=== PATIENT | female | born 1965 | race Caucasian/White ===

== ENCOUNTER → 2017-11-18 | Outpatient (CLI) | payer OTHER ==
[~2017-11-18] MED LIST: BETA.05TC TOP; BETA.05TCA TOP; BUSP15 PO; CITA20 PO; CYCL10 PO; DOCU100 PO; Esgic Tablet1 EACH PO; FISH1000 PO; GABA100 PO; HYDCHL25 PO; IBUP400 PO; IBUP800 PO; METF500 PO; METO25ER PO; OMEPRAZOLE MAGN20 MG PO
[2017-11-18 15:26] LABS: Alanine Aminotransfer (ALT/SGP 41 U/L (12-78); Albumin, Blood 3.7 g/dL (3.4-5.0); Albumin/Globulin Ratio 0.9 (0.8-1.8); Alk Phos 73 U/L (50-136); Anion Gap 8 mmol/L (6-16); Aspartate Aminotrans (AST/SGOT 49 U/L (12-37); Bilirubin, Total 0.4 mg/dL (0.1-1.0); Blood Urea Nitrogen 7 mg/dL (8-24); Bun/Creatinine Ratio 12.9 (12.0-20.0); CO2, Blood 28 mmol/L (21-32); Calcium, Blood 9.2 mg/dL (8.5-10.1); Chloride, Blood 102 mmol/L (98-108); Creatinine, Blood 0.54 mg/dL (0.40-1.00); Globulin, Blood 4.2 g/dL (2.2-4.0); Glomerular Filtration Rate >60 (60-); Glucose, Blood 88 mg/dL (70-99); Potassium, Blood 3.9 mmol/L (3.5-5.5); Sodium, Blood 138 mmol/L (136-145); Total Protein, Blood 7.9 g/dL (6.4-8.2)
== END | disposition home or self-care (01) ==
LOC: LAB SHORT 14:55 → LAB 14:55
DX: E11.9 Type 2 diabetes mellitus without complications (principal)
CPT/HCPCS: 80053; 83036

== ENCOUNTER → 2018-08-14 | Outpatient (CLI) | payer OTHER ==
[~2018-08-14] MED LIST changes: +ALLO100 PO; +BUSP10 PO; +GABA300 PO; +HYDCHL12.5 PO; +METF500; +METF500C PO; +OMEPRAZOLE20 MG PO; +PRED5 PO
[2018-08-14 20:31] LABS: Alanine Aminotransfer (ALT/SGP 47 U/L (12-78); Albumin, Blood 3.8 g/dL (3.4-5.0); Albumin/Globulin Ratio 0.9 (0.8-1.8); Alk Phos 78 U/L (50-136); Anion Gap 10 mmol/L (6-16); Aspartate Aminotrans (AST/SGOT 40 U/L (12-37); Bilirubin, Total 0.5 mg/dL (0.1-1.0); Blood Urea Nitrogen 8 mg/dL (8-24); Bun/Creatinine Ratio 17.1 (12.0-20.0); CO2, Blood 27 mmol/L (21-32); Calcium, Blood 9.4 mg/dL (8.5-10.1); Chloride, Blood 101 mmol/L (98-108); Creatinine, Blood 0.47 mg/dL (0.40-1.00); Globulin, Blood 4.2 g/dL (2.2-4.0); Glomerular Filtration Rate >60 (60-); Glucose, Blood 155 mg/dL (70-99); Potassium, Blood 3.6 mmol/L (3.5-5.5); Sodium, Blood 138 mmol/L (136-145)
== END | disposition home or self-care (01) ==
LOC: LAB 15:42 → LAB SHORT 15:42
PROVIDERS: Podiatrist
DX: I47.1 Supraventricular tachycardia (principal); M10.9 Gout, unspecified
CPT/HCPCS: 80053; 84550

== ENCOUNTER 2018-10-10 09:46 | Day surgery (SDC) | payer OTHER ==
[~2018-10-10] VITALS: Ht 162.6 cm; Wt 120.0 kg
[2018-10-10] MEDS ORDERED: OMEP20ER PO (10:22)
[2018-10-10] MEDS ORDERED: FURO20 PO (10:24)
[2018-10-10] MEDS ORDERED: VITAMIN D-32000 UNIT PO (10:27)
[2018-10-10] MEDS ORDERED: ACET325 PO (10:27)
[2018-10-10] MEDS ORDERED: FISH OIL 1,001000 MG PO (10:27)
--- NOTE | 2018-10-10 15:28 | NUR ---
DISCHARGE PT REMAINED A&OX3 AND DENIED ANY PAIN DURING RECOVERY. R RADIAL SITE CDI-NO HEMATOMA NOTED-CLOTH DOT AND WHITE ARM BOARD IN PLACE. IV DC'D WITH CANULA IN TACT. DISCHARGE PAPERWORK GONE OVER WITH PT AND MOTHER. PT AND MOTHER VERBALY STATED THE UNDERSTANDING OF THE DISCHARGE EDUCATION AND DENIED ANY QUESTIONS AT THIS TIME. PT UP TO RESTROOM INDEPENDANLY AND DRESSES SELF. PT WHEELED OUT WITH BELONGINGS BY JOBY Hair
[2018-10-28] MEDS ORDERED: VITAMIN D5000 UNIT PO (14:04)
[2018-10-28] MEDS ORDERED: ACET325 PO (14:05)
== END 2018-10-12 23:47 | disposition home or self-care (01) ==
LOC: MHTC 09:46
PROC: B2111ZZ Fluoroscopy of Multiple Coronary Arteries using Low Osmolar Contrast (ICD-10-PCS; principal; 2018-10-10)
PROC: 4A023N7 Measurement of Cardiac Sampling and Pressure, Left Heart, Percutaneous Approach (ICD-10-PCS; principal; 2018-10-10)
DX: R07.89 Other chest pain (principal); I10 Essential (primary) hypertension; E78.5 Hyperlipidemia, unspecified; E11.9 Type 2 diabetes mellitus without complications; E66.01 Morbid (severe) obesity due to excess calories; M19.90 Unspecified osteoarthritis, unspecified site; R60.9 Edema, unspecified; K44.9 Diaphragmatic hernia without obstruction or gangrene; K27.9 Peptic ulcer, site unspecified, unspecified as acute or chronic, without hemorrhage or perforation; Z79.899 Other long term (current) drug therapy; Z79.84 Long term (current) use of oral hypoglycemic drugs; Z88.8 Allergy status to other drugs, medicaments and biological substances; Z88.1 Allergy status to other antibiotic agents; Z91.018 Allergy to other foods; Z68.41 Body mass index [BMI] 40.0-44.9, adult
CPT/HCPCS: 93458; 99152; 99153; C1769; C1894; J0690; J1644; J2250; J3010; J7030; Q9967

== ENCOUNTER 2018-10-29 08:12 | Day surgery (SDC) | payer OTHER ==
[~2018-10-29] VITALS: Ht 162.6 cm; Wt 118.1 kg
[~2018-10-29 08:12] MED LIST changes: +ACET325 PO; +FISH OIL 1,001000 MG PO; +FURO20 PO; +OMEP20ER PO; +VITAMIN D-32000 UNIT PO; +VITAMIN D5000 UNIT PO
--- NOTE | 2018-10-29 09:56 | NUR ---
Ambulatory in Day SurgeryPatient states colon prep results clear. History, Chart, Medications and Allergies reviewed before start of procedure..Lungs clear T/O to Auscultation. Patient confirms NPO status and agrees with scheduled surgery.CBG 135. Patient States Post-Procedure ride home has been arranged.
--- NOTE | 2018-10-29 10:37 | NUR ---
10/29/18 Rock Garvey 3-LEAD EKG REVIEWED WITH PHYSICIAN PRIOR TO START OF PROCEDURE.Patient to ENDO 1History, Chart, Medications and Allergies reviewed before start of procedure.MONITOR INTACT WITH CONTINUOUS PULSE OXIMETRY AND INTERMITTENT BP.O2 VIA N/C INTACT THROUGHOUT SEDATION/PROCEDURE.
--- NOTE | 2018-10-29 12:05 | NUR ---
Discharge instructions reviewed with patient. Patient verbalizes understanding. Copy given to patient to take home. Discharged via wheelchair to private car for ride home.
== END 2018-10-29 22:40 | disposition home or self-care (01) ==
LOC: ORSCMMR 08:12 → ORD 10:00 → ORSCMMR 22:40
PROVIDERS: Internal Medicine Gastroenterology
PROC: 0DBN8ZX Excision of Sigmoid Colon, Via Natural or Artificial Opening Endoscopic, Diagnostic (ICD-10-PCS; principal; 2018-10-29 10:00)
PROC: 0DBL8ZX Excision of Transverse Colon, Via Natural or Artificial Opening Endoscopic, Diagnostic (ICD-10-PCS; principal; 2018-10-29 10:00)
DX: K62.5 Hemorrhage of anus and rectum (principal); D12.3 Benign neoplasm of transverse colon; D12.5 Benign neoplasm of sigmoid colon; K64.4 Residual hemorrhoidal skin tags; K62.4 Stenosis of anus and rectum; E11.9 Type 2 diabetes mellitus without complications; Z79.899 Other long term (current) drug therapy
CPT/HCPCS: 82947; 88305; J2250; J3010; J7120

== ENCOUNTER 2018-12-19 13:05 | Emergency (ER) | payer OTHER ==
[~2018-12-19] VITALS: Ht 162.6 cm; Wt 114.3 kg
[2018-12-19 13:56] LABS: BASOPHILS ABSOLUTE AUTO 0.06 K/mm3 (0.00-0.23); BASOPHILS PERCENT AUTO 1 % (0-2); EOSINOPHILS ABSOLUTE AUTO 0.11 K/mm3 (0.00-0.68); EOSINOPHILS PERCENT AUTO 1 % (0-6); Hematocrit 40.9 % (33.0-51.0); Hemoglobin 13.1 g/dL (11.5-16.0); IMMATURE GRAN ABSOLUTE AUTO 0.04 K/mm3 (0.00-0.10); IMMATURE GRAN PERCENT AUTO 1 % (0-1); LYMPHOCYTES ABSOLUTE AUTO 1.98 K/mm3 (0.84-5.20); LYMPHOCYTES PERCENT AUTO 25 % (21-46); MONOCYTES ABSOLUTE AUTO 0.43 K/mm3 (0.16-1.47); MONOCYTES PERCENT AUTO 5 % (4-13); Mean Corpuscular HGB 29.9 pg (26.0-34.0); Mean Corpuscular Volume 93 fL (80-100); Mean Platelet Volume 10.8 fL (9.1-12.4); NEUTROPHILS ABSOLUTE AUTO 5.36 K/mm3 (1.96-9.15); NEUTROPHILS PERCENT AUTO 67 % (41-73); Platelet Count 233 K/mm3 (150-400); RDW Coefficient Variation 13.4 % (11.7-14.2); RDW Standard Deviation 45.6 fL (35.1-46.3); Red Blood Cell Count 4.38 M/mm3 (3.80-5.20); White Blood Cell Count 7.98 K/mm3 (4.00-11.30)
[2018-12-19 14:14] LABS: Alanine Aminotransfer (ALT/SGP 49 U/L (12-78); Albumin, Blood 3.6 g/dL (3.4-5.0); Albumin/Globulin Ratio 0.9 (0.8-1.8); Alk Phos 96 U/L (50-136); Anion Gap 7 mmol/L (6-16); Aspartate Aminotrans (AST/SGOT 76 U/L (12-37); Bilirubin, Total 0.3 mg/dL (0.1-1.0); Blood Urea Nitrogen 8 mg/dL (8-24); Bun/Creatinine Ratio 18.2 (12.0-20.0); CO2, Blood 23 mmol/L (21-32); Calcium, Blood 9.3 mg/dL (8.5-10.1); Chloride, Blood 108 mmol/L (98-108); Creatinine, Blood 0.44 mg/dL (0.40-1.00); Glomerular Filtration Rate >60 (60-); Glucose, Blood 235 mg/dL (70-99); Potassium, Blood 3.3 mmol/L (3.5-5.5); Sodium, Blood 138 mmol/L (136-145); Total Protein, Blood 7.6 g/dL (6.4-8.2); Troponin I <0.015 ng/mL (0.000-0.040)
== END 2018-12-19 15:00 | disposition home or self-care (01) ==
LOC: ER 13:05
PROVIDERS: Emergency Medicine
DX: R00.2 Palpitations (principal); Z88.1 Allergy status to other antibiotic agents; Z88.8 Allergy status to other drugs, medicaments and biological substances; Z88.6 Allergy status to analgesic agent; Z91.018 Allergy to other foods; Z91.048 Other nonmedicinal substance allergy status; Z79.899 Other long term (current) drug therapy; Z79.84 Long term (current) use of oral hypoglycemic drugs; F32.9 Major depressive disorder, single episode, unspecified; E11.9 Type 2 diabetes mellitus without complications
CPT/HCPCS: 71046; 80053; 84484; 85025; 93005; 93010; 99285-25

== ENCOUNTER 2020-06-21 07:57 | Day surgery (SDC) | payer OTHER ==
[~2020-06-21] VITALS: Ht 162.6 cm; Wt 116.0 kg
[~2020-06-21 07:57] MED LIST changes: +ATOR20 PO; +GLIP10 PO
--- NOTE | 2020-06-21 09:25 | NUR ---
History, Chart, Medications and Allergies reviewed before start of procedure. Patient confirms NPO status and agrees with scheduled PROCEDURE. Patient States Post-Procedure ride home has been arranged.
--- NOTE | 2020-06-21 10:37 | NUR ---
06/21/20 Deepika Mann History, Chart, Medications and Allergies reviewed before start of procedure. Patient confirms NPO status and agrees with scheduled surgery. PATIENT DETERMINED TO BE ASA APPROPRIATE FOR PROPOFOL SEDATION PRIOR TO START OF PROCEDURE BY . 3-LEAD EKG REVIEWED WITH PHYSICIAN PRIOR TO START OF PROCEDURE. MONITOR INTACT WITH CONTINUOUS PULSE OXIMETRY AND INTERMITTENT BP. SUPPLEMENTAL O2 TO BE TITRATED THROUGHOUT PROCEDURE TO MAINTAIN O2 SATURATION ABOVE 90%.
== END 2020-06-21 23:18 | disposition home or self-care (01) ==
LOC: ORSCMMR 07:57 → ORD 09:30 → ORSCMMR 09:30
PROVIDERS: Internal Medicine Gastroenterology
PROC: 0DB78ZX Excision of Stomach, Pylorus, Via Natural or Artificial Opening Endoscopic, Diagnostic (ICD-10-PCS; principal; 2020-06-21 09:30)
PROC: 0DB48ZX Excision of Esophagogastric Junction, Via Natural or Artificial Opening Endoscopic, Diagnostic (ICD-10-PCS; principal; 2020-06-21 09:30)
PROC: 0DB58ZX Excision of Esophagus, Via Natural or Artificial Opening Endoscopic, Diagnostic (ICD-10-PCS; principal; 2020-06-21 09:30)
PROC: 0D758ZZ Dilation of Esophagus, Via Natural or Artificial Opening Endoscopic (ICD-10-PCS; principal; 2020-06-21 09:30)
DX: R13.14 Dysphagia, pharyngoesophageal phase (principal); B37.81 Candidal esophagitis; K21.9 Gastro-esophageal reflux disease without esophagitis; E11.9 Type 2 diabetes mellitus without complications; E66.01 Morbid (severe) obesity due to excess calories; Z68.41 Body mass index [BMI] 40.0-44.9, adult; Z79.84 Long term (current) use of oral hypoglycemic drugs; Z79.899 Other long term (current) drug therapy
CPT/HCPCS: 82947; 88305; 88342; A9270; C1726; J2250; J3010; J7120

== ENCOUNTER → 2021-06-27 | Outpatient (CLI) | payer OTHER ==
[2021-06-28 17:12] LABS: HPV 16 Negative (Negative); HPV 18 Negative (Negative); HPV OTHER HR TYPES Negative (Negative)
== END | disposition home or self-care (01) ==
LOC: LAB SHORT 18:57 → LAB 18:57
PROVIDERS: Family Medicine
DX: Z01.419 Encounter for gynecological examination (general) (routine) without abnormal findings (principal)
CPT/HCPCS: 87624; G0123

== ENCOUNTER → 2021-09-26 | Outpatient (CLI) | payer OTHER ==
[2021-09-26 22:09] LABS: LDL/HDL RATIO 2.4; Very Low Density Lipoprot Chol 68 mg/dL (6-32)
[2021-09-26 22:10] LABS: Cholesterol 211 mg/dL (50-200); HDL Cholesterol 42 mg/dL (>39); Low Density Lipoprotein Chol 101 mg/dL (0-110); Triglycerides 342 mg/dL (30-160)
== END | disposition home or self-care (01) ==
LOC: LAB SHORT 18:38
PROVIDERS: Family Medicine
DX: Z13.6 Encounter for screening for cardiovascular disorders (principal)
CPT/HCPCS: 80061

== ENCOUNTER 2021-12-15 10:47 | Emergency (ER) | payer OTHER ==
[~2021-12-15] VITALS: Ht 165.1 cm; Wt 116.6 kg
[~2021-12-15 10:47] MED LIST changes: +HYDR1TAB94 PO
[2021-12-15] MEDS ORDERED: OXYC5 PO (14:55)
== END 2021-12-15 15:04 | disposition home or self-care (01) ==
LOC: ER 10:47
DX: M25.561 Pain in right knee (principal); M79.89 Other specified soft tissue disorders; Z79.899 Other long term (current) drug therapy; Z79.84 Long term (current) use of oral hypoglycemic drugs
CPT/HCPCS: 73562-RT; 93971; A9270

== ENCOUNTER 2023-12-17 06:55 | Day surgery (SDC) | payer OTHER ==
[~2023-12-17] VITALS: Ht 162.6 cm; Wt 113.4 kg
[~2023-12-17 06:55] MED LIST changes: +Balanced Salt Epinephrine Irrigation Solution 500 mL IR SCH; +Lidocaine HCl/Pf 1% 5 ML VIAL ONE; +Lidocaine HCl/Pf 1% 5 ML VIAL XX SCH; +Moxifloxacin HCL 0.5 MG/0.1 ML 0.4MLSYR LEFTEYE SCH; +NS 500 ML IV ONE; +OXYC5 PO; +PHENYLEPHRINE\\TROPICAMIDE\\TETRACAINE OPHTHALMIC DILATING SOLN LEFTEYE PRN; +Povidone-Iodine 450 DROP/30 ML Solution LEFTEYE SCH; +Povidone-Iodine 450 DROP/30 ML Solution ONE; +Tetracaine HCl/Pf 0.5% Opth Soln 4 ml ONE
[2023-12-17] MEDS ORDERED: STEGLATRO15 MG PO (07:48)
[2023-12-17] MEDS ORDERED: NS 500 ML IV ONE (07:56)
--- NOTE | 2023-12-17 07:57 | NUR ---
12/17/23 5043 Marjorie Jade CALL LIGHT WITHIN REACH. TETRACAINE IN LEFT EYE AT 0744 AND PLEDETT IN AT 0745. PT STATES SHE FELL AT HOME A COUPLE DAYS AGO. PT IS HERE TODAY FOR LEFT EYE CATARACT. PT C/O PAIN ON HER RIGHT SIDE OF BODY RELATED TO HER FALL FROM HOME. PT STATES SHE GETS MUSCLE SPASMS. PT STATES HER PAIN IS 9/10. WILL LET DOCTORS KNOW.
[2023-12-17] MEDS ORDERED: FentaNYL Citrate 50 MCG/ML 2 ML Injection ONE (08:00)
[2023-12-17] MEDS ORDERED: Midazolam HCl 1MG / ML 2ML Vial ONE (08:04)
[2023-12-17 09:13] VITALS: BP 137/110
--- NOTE | 2023-12-17 09:48 | NUR ---
12/17/23 0947 Sol Akhtar PT DENIED CLARK, CHEST PAIN, DIZZINESS, NAUSEAU, SOB. DR. SCHNEIDER CONSULTED REGARDING HTN AND APPROVED DISCHARGE. PT ADVISED TO MONITOR BP AT HOME AND NOTIFY PC
== END 2023-12-17 09:37 | disposition home or self-care (01) ==
LOC: ORSCSDS 06:55
PROVIDERS: Student in an Organized Health Care Education/Training Program
PROC: 08RK3JZ Replacement of Left Lens with Synthetic Substitute, Percutaneous Approach (ICD-10-PCS; principal; 2023-12-17 08:30)
DX: E11.36 Type 2 diabetes mellitus with diabetic cataract (principal); H25.813 Combined forms of age-related cataract, bilateral; H40.003 Preglaucoma, unspecified, bilateral; I10 Essential (primary) hypertension; F32.A Depression, unspecified; K21.9 Gastro-esophageal reflux disease without esophagitis; E66.9 Obesity, unspecified; Z68.41 Body mass index [BMI] 40.0-44.9, adult; Z79.84 Long term (current) use of oral hypoglycemic drugs; Z79.899 Other long term (current) drug therapy
CPT/HCPCS: 82947; J2001; J2250; J3010; J7040; V2632

== ENCOUNTER 2023-12-31 06:05 | Day surgery (SDC) | payer OTHER ==
[~2023-12-31] VITALS: Ht 162.6 cm; Wt 106.0 kg
[~2023-12-31 06:05] MED LIST changes: -Lidocaine HCl/Pf 1% 5 ML VIAL ONE; -Moxifloxacin HCL 0.5 MG/0.1 ML 0.4MLSYR LEFTEYE SCH; +Moxifloxacin HCL 0.5 MG/0.1 ML 0.4MLSYR RIGHTEYE SCH; -PHENYLEPHRINE\\TROPICAMIDE\\TETRACAINE OPHTHALMIC DILATING SOLN LEFTEYE PRN; +PHENYLEPHRINE\\TROPICAMIDE\\TETRACAINE OPHTHALMIC DILATING SOLN RIGHTEYE PRN; -Povidone-Iodine 450 DROP/30 ML Solution LEFTEYE SCH; +Povidone-Iodine 450 DROP/30 ML Solution RIGHTEYE SCH; +STEGLATRO15 MG PO
[2023-12-31] MEDS ORDERED: Lidocaine HCl/Pf 1% 5 ML VIAL ONE (06:48)
[2023-12-31] MEDS ORDERED: Bisoprolol Fuma10 MG PO (06:52)
[2023-12-31] MEDS ORDERED: Midazolam HCl 1MG / ML 2ML Vial ONE (07:57)
[2023-12-31 08:45] VITALS: BP 131/66
== END 2023-12-31 08:36 | disposition home or self-care (01) ==
LOC: ORSCSDS 06:05
PROVIDERS: Student in an Organized Health Care Education/Training Program
PROC: 08RJ3JZ Replacement of Right Lens with Synthetic Substitute, Percutaneous Approach (ICD-10-PCS; principal; 2023-12-31 08:00)
DX: E11.36 Type 2 diabetes mellitus with diabetic cataract (principal); H25.811 Combined forms of age-related cataract, right eye; Z96.1 Presence of intraocular lens; H40.003 Preglaucoma, unspecified, bilateral; R06.02 Shortness of breath; Z79.84 Long term (current) use of oral hypoglycemic drugs; Z79.899 Other long term (current) drug therapy
CPT/HCPCS: 82947; J2001; J2003; J2250; J7040; V2632

== ENCOUNTER 2024-07-21 17:54 | Inpatient (IN) | payer OTHER ==
[~2024-07-21] VITALS: Ht 157.5 cm; Wt 111.4 kg
[~2024-07-21 17:54] MED LIST changes: -Balanced Salt Epinephrine Irrigation Solution 500 mL IR SCH; +Bisoprolol Fuma10 MG PO; -Lidocaine HCl/Pf 1% 5 ML VIAL XX SCH; -Moxifloxacin HCL 0.5 MG/0.1 ML 0.4MLSYR RIGHTEYE SCH; -NS 500 ML IV ONE; -PHENYLEPHRINE\\TROPICAMIDE\\TETRACAINE OPHTHALMIC DILATING SOLN RIGHTEYE PRN; -Povidone-Iodine 450 DROP/30 ML Solution ONE; -Povidone-Iodine 450 DROP/30 ML Solution RIGHTEYE SCH; -Tetracaine HCl/Pf 0.5% Opth Soln 4 ml ONE
[2024-07-21] MEDS ORDERED: Acetaminophen 325 MG TABLET PO ONE (19:05)
[2024-07-21] MEDS ORDERED: OxyCODONE 5 mg/Acetamin 325 mg TABLET PO ONE (20:20)
[2024-07-21] MEDS ORDERED: Ondansetron HCl 2 MG / ML 2ML Vial IV PRN (20:55)
[2024-07-21] MEDS ORDERED: Metoclopramide HCl 5MG / ML 2ML Vial IV PRN (20:55)
[2024-07-21] MEDS ORDERED: OxyCODONE HCL 5 MG TAB PO PRN (20:55)
[2024-07-21] MEDS ORDERED: Acetaminophen 325 MG TABLET PO PRN (20:55)
[2024-07-21] MEDS ORDERED: BusPIRone HCl 10 MG Tab PO SCH (21:00)
[2024-07-21] MEDS ORDERED: NS 1,000 ML IV SCH (21:00)
[2024-07-21] MEDS ORDERED: Gabapentin 300 MG Cap PO SCH ×2 (21:00→23:20)
[2024-07-21] MEDS ORDERED: GABA400 PO (22:13)
[2024-07-21] MEDS ORDERED: PROZAC40 MG PO (22:14)
[2024-07-21] MEDS ORDERED: Oxybutynin Chlo10 MG PO (22:15)
[2024-07-21 23:38] VITALS: BP 136/83
[2024-07-21] MEDS ORDERED: Gabapentin 400 MG Cap PO SCH ×2 (23:42→23:46)
[2024-07-22] VITALS (16 sets, daily range): BP systolic 106–140; BP diastolic 57–81
[2024-07-22] MEDS ORDERED: Insulin Human Lispro 100 Units/ML 3ML Syringe SC SCH
--- NOTE | 2024-07-22 05:03 | NUR ---
ALTERATION SPECIALIST SUMMARY PT IS A NEW ADMIT FROM THE ED TONIGHT. ADMITTED FOR R PATELLA FRACTURE. PT QUITE PAINFUL BUT HAS BEEN CONTROLLED WELL WITH OXYCODONE. AAOX4 AND PLEASANT. ON BEDREST AND HAS BEEN NPO SINCE MIDNIGHT. SOME MINOR SWELLING TO R KNEE. SPLINT THAT WAS PLACED IN THE ED REMAINS IN PLACE PER PT REQUEST SHE STATES "IT KEEPS EVERYTHING STABLE". VSS, WILL CONTINUE TO MONITOR.
[2024-07-22 05:41] LABS: BASOPHILS PERCENT AUTO 1 % (0-2); EOSINOPHILS ABSOLUTE AUTO 0.17 K/mm3 (0.00-0.68); EOSINOPHILS PERCENT AUTO 2 % (0-6); Hematocrit 36.2 % (33.0-51.0); Hemoglobin 11.9 g/dL (11.5-16.0); IMMATURE GRAN ABSOLUTE AUTO 0.05 K/mm3 (0.00-0.10); IMMATURE GRAN PERCENT AUTO 1 % (0-1); LYMPHOCYTES ABSOLUTE AUTO 3.07 K/mm3 (0.84-5.20); LYMPHOCYTES PERCENT AUTO 35 % (21-46); MONOCYTES ABSOLUTE AUTO 0.59 K/mm3 (0.16-1.47); MONOCYTES PERCENT AUTO 7 % (4-13); Mean Corpuscular HGB Conc 32.9 g/dL (31.5-36.5); Mean Corpuscular Volume 91 fL (80-100); Mean Platelet Volume 10.6 fL (9.1-12.4); NEUTROPHILS ABSOLUTE AUTO 4.72 K/mm3 (1.96-9.15); NEUTROPHILS PERCENT AUTO 54 % (41-73); Platelet Count 227 K/mm3 (150-400); RDW Coefficient Variation 13.9 % (11.7-14.2); RDW Standard Deviation 46.4 fL (35.1-46.3); Red Blood Cell Count 3.97 M/mm3 (3.80-5.20)
[2024-07-22 05:57] LABS: International Normalized Ratio 1.03
[2024-07-22] MEDS ORDERED: Omeprazole 20 MG CapCR PO SCH (06:00)
[2024-07-22 06:12] LABS: Albumin, Blood 3.4 g/dL (3.4-5.0); Albumin/Globulin Ratio 0.9 (0.8-1.8); Bilirubin, Total 0.5 mg/dL (0.1-1.0); Bun/Creatinine Ratio 14.9 (12.0-20.0); Calcium, Blood 8.7 mg/dL (8.5-10.1); Creatinine, Blood 0.4 mg/dL (0.40-1.00); Globulin, Blood 3.7 g/dL (2.2-4.0); Magnesium, Blood 1.4 mg/dL (1.6-2.4); Potassium, Blood 3.6 mmol/L (3.5-5.5); Total Protein, Blood 7.1 g/dL (6.4-8.2)
[2024-07-22] MEDS ORDERED: Citalopram Hydrobromide 20 MG Tab PO SCH (09:00)
[2024-07-22] MEDS ORDERED: Allopurinol 100 MG Tab PO SCH (09:00)
[2024-07-22] MEDS ORDERED: Docusate Sodium 100 MG Cap PO SCH (09:00)
[2024-07-22] MEDS ORDERED: Mag Sulfate 1 GM/D5% 100ML 100 ML IV STA (11:07)
[2024-07-22] MEDS ORDERED: propofoL 150 ML IV ONE (11:08)
[2024-07-22] MEDS ORDERED: Bupivacaine 0.5% Inj 10 ML Vial ONE (11:08)
[2024-07-22] MEDS ORDERED: Lidocaine HCl 1% 5 ML SYR INJ ONE (12:25)
[2024-07-22] MEDS ORDERED: Acetaminophen 500 MG Tab PO ONE (12:25)
[2024-07-22] MEDS ORDERED: Lactated Ringer's 1,000 ML IV SCH (13:25)
[2024-07-22] MEDS ORDERED: CeFAZolin Sodium 2,000 MG in NS 100 ML IV SCH ×2 (13:25→23:00)
[2024-07-22] MEDS ORDERED: Tranexamic Acid 100 ML IV SCH (13:26)
[2024-07-22] MEDS ORDERED: CeFAZolin Sodium 2,000 MG VIAL ONE (13:33)
[2024-07-22] MEDS ORDERED: Ondansetron HCl 2 MG / ML 2ML Vial ONE (14:24)
[2024-07-22] MEDS ORDERED: Dexamethasone Sod Phos 10 MG/ML 1ML VIAL ONE (14:24)
[2024-07-22] MEDS ORDERED: HYDROmorphone HCl/Pf 1MG SYR ONE (14:24)
[2024-07-22] MEDS ORDERED: Ketorolac Tromethamine 30mg Vial ONE (14:24)
[2024-07-22] MEDS ORDERED: Metoclopramide HCl 5MG / ML 2ML Vial ONE (14:24)
[2024-07-22] MEDS ORDERED: Ropivacaine 0.5% HCL/PF 5 MG/ML 30ML Vial ONE (14:37)
[2024-07-22] MEDS ORDERED: Bupivacaine 0.5% HCl 5 MG/ML 30MLVIAL ONE (14:42)
[2024-07-22] MEDS ORDERED: Dexmedetomidine HCL 200 MCG / 2 ML ONE (15:00)
[2024-07-22] MEDS ORDERED: EpiNEPhrine 1 MG/1 ML 1ML Vial ONE (15:42)
[2024-07-22] MEDS ORDERED: propofoL 20 ML IV ONE ×2 (16:15→16:42)
[2024-07-22] MEDS ORDERED: Vancomycin HCl 1000 MG ADDvantage ONE (16:33)
--- NOTE | 2024-07-22 16:40 | NUR ---
07/22/24 1640 Rosetta Lawson VANCOMYCIN POWDER 1GM INSTILLED INTO INCISION SITE.
[2024-07-22] MEDS ORDERED: Albuterol 2.5 MG/3 ML VIAL INH PRN (17:25)
[2024-07-22] MEDS ORDERED: HYDROmorphone HCl/Pf 1MG SYR IV PRN (17:25)
[2024-07-22] MEDS ORDERED: Ondansetron HCl 2 MG / ML 2ML Vial IV PRN (17:25)
[2024-07-22] MEDS ORDERED: FentaNYL Citrate 50 MCG/ML 2 ML Injection IV PRN ×3 (17:25)
--- NOTE | 2024-07-22 18:40 | NUR ---
SHIFT SUMMARY PT A&OX4, VSS, TOLERATING PO, VOIDING, AND PAIN MANAGED PER EMAR. PT HAD ORIF KNEE R PATELLA THIS SHIFT. AQUACEL AND BRACE IN PLACE. SECOND DOSE OF TXA GIVEN. NO OTHER ACUTE CHANGES. CALL LIGHT WITHIN REACH AND PT ABLE TO MAKE NEEDS KNOWN.
--- NOTE | 2024-07-23 03:22 | NUR ---
: REPORT FROM USAMA COFFMAN, ASSUMED CARE OF PATIENT. PATIENT SLEEPING AT THIS TIME. IVF NS INFUSING AT 100 ML/HR WITH SITE CLEAR. IMMOBILIZER NOTED TO RLE KNEE. ARTURO DRSG C/D/I. PUREWICK IN PLACE WITH CLEAR YELLOW URINE NOTED IN CANISTER. 2231 IVPB ANTIBIOTIC UP, #1 OF 2 ORDERED POST OP. MEDICATED WITH TYLENOL PER PATIENT REQUEST. REPORTED PAIN 8/10, DENIES NEED FOR STRONGER PAIN MEDS. ADJUSTED IMMOBILIZER AFTER SEEING IT WAS TUNRED A LITTLE TO THE SIDE. DRSG REMAINS C/D/I. PATIENT REQUESTED A HALF OF SANDWICH, GIVEN. EMPTIED 950ML OF URINE FROM CANISTER. FRESH WATER GIVEN. PAIN DOWN TO 3/10 POST TYLENOL. TURNED OFF LIGHT AND TV PT IS GOING BACK TO SLEEP.
[2024-07-23 03:46] VITALS: BP 123/66
--- NOTE | 2024-07-23 07:25 | NUR ---
NO ACUTE CHANGES FROM NOTE WRITTEN FOR TIME FROM 1914 TO 299. PATIENT HAD GOOD URINE OUTPUT. PT REFUSED ICE AT START OF SHIFT BUT CHANGED HER MIND WHEN I TOLD HER ABOUT THE SWELLING. ICE PLACED AT 0330. INSTRUCTED PT TO HAVE ICE ON 30 MIN THEN OFF 30. CALL LIGHT IN REACH AND BED IN LOWEST POSITION. PATIENT KNOWS SHE WILL BE WORKING WITH PT TODAY. GOOD CIRC CHECKS CONTINUED. WILL GIVE REPORT TO ONCOMING RN TAKING PT.
[2024-07-23 07:26] VITALS: BP 123/65
[2024-07-23] MEDS ORDERED: Insulin Human Lispro 100 Units/ML 3ML Syringe SC SCH (07:30)
[2024-07-23 14:51] VITALS: BP 115/65
[2024-07-23] MEDS ORDERED: MetFORMIN HCl 500 mg PO SCH (17:00)
--- NOTE | 2024-07-23 17:12 | NUR ---
SHIFT SUMMARY POD X1 R KNEE PATELLAR ORIF. AQUACELL C/D/I. R KNEE IMMOBILIZER IN PLACE. PT A&O X4. TOLERATING DIET. PT DENIES N&V. URINATING USING BEDSIDE COMMODE WITH 2 PERSON STAND AND PIVOT. PAIN MANAGED PER EMAR. PT MAKES NEEDS KNOWN. CALL LIGHT WITHIN REACH.
[2024-07-23 19:53] VITALS: BP 138/69
[2024-07-24 02:42] VITALS: BP 128/60
--- NOTE | 2024-07-24 04:47 | NUR ---
SHIFT SUMMARY ELISE WAS ALERT AND FULLY ORIENTED ON ASSESSMENT. PT AMBULATES SLOWLY WITH FWW AND BRACE IN PLACE. PURWIC PLACED FOR NIGHTIME URGENCY. DRESSING TO R LEG C/D/I, PEDAL PULSES PALPABLE, SENSATION INTACT. DENIES OTHER SYMPTOMS. PT REPORTS A HIGH PAIN RATING (10) BUT APPEARS NON DISTRESSED AND HAS NOT REQUIRED MUCH MAIN MANAGEMENT TO BE AT A LEVEL SHE CLAIMS IS "TOLERABLE" NO ACUTE EVENTS TONIGHT. NO NOTED CHANGES TO PT CONDITION.
[2024-07-24 06:09] LABS: BASOPHILS ABSOLUTE AUTO 0.03 K/mm3 (0.00-0.23); BASOPHILS PERCENT AUTO 0 % (0-2); EOSINOPHILS ABSOLUTE AUTO 0.01 K/mm3 (0.00-0.68); EOSINOPHILS PERCENT AUTO 0 % (0-6); Hematocrit 30.4 % (33.0-51.0); Hemoglobin 9.8 g/dL (11.5-16.0); IMMATURE GRAN PERCENT AUTO 1 % (0-1); LYMPHOCYTES ABSOLUTE AUTO 2.97 K/mm3 (0.84-5.20); LYMPHOCYTES PERCENT AUTO 28 % (21-46); MONOCYTES ABSOLUTE AUTO 0.68 K/mm3 (0.16-1.47); MONOCYTES PERCENT AUTO 7 % (4-13); Mean Corpuscular HGB 29.4 pg (26.0-34.0); Mean Corpuscular HGB Conc 32.2 g/dL (31.5-36.5); Mean Corpuscular Volume 91 fL (80-100); Mean Platelet Volume 10.2 fL (9.1-12.4); NEUTROPHILS PERCENT AUTO 64 % (41-73); Platelet Count 215 K/mm3 (150-400); RDW Coefficient Variation 14.3 % (11.7-14.2); RDW Standard Deviation 47.4 fL (35.1-46.3); Red Blood Cell Count 3.33 M/mm3 (3.80-5.20); White Blood Cell Count 10.49 K/mm3 (4.00-11.30)
[2024-07-24 06:32] LABS: Bun/Creatinine Ratio 21.4 (12.0-20.0); Calcium, Blood 8.5 mg/dL (8.5-10.1); Creatinine, Blood 0.47 mg/dL (0.40-1.00)
[2024-07-24 07:13] VITALS: BP 132/62
[2024-07-24] MEDS ORDERED: HydroCHLOROthiazide 25 mg Tab PO SCH (09:00)
[2024-07-24] MEDS ORDERED: Metoprolol Succinate 25 MG TABCR PO SCH (09:00)
[2024-07-24 14:49] VITALS: BP 122/71
--- NOTE | 2024-07-24 18:16 | NUR ---
ASSUMED CARE OF PT. A/O VSS PT WANTING TO GO HOME AND EXPRESS DESIRE NOT TO GO TO SNF. WE HAD LONG CONVERSATION ABOUT NEEDING EXTRA HELP FOR HOME BUT PT REFUSED TO AGREE TO GO TO A SNF BECAUSE HER MOTHER WAS NEEDING HER ASSISTENCE AT HOME. PT WAS ABLE TO TRANSFER WITH MY ASSIST AT BEDSIDE BUT IS VERY SLOW AND AT RISK FOR FALLING IF ASSISTENCE IS NOT THERE. PHYSICAL T AGREED THAT SNF WOULD BE APPROPRIATE PLACE, PT STILL WANTING TO GO HOME. PT HAS BEEN UP IN CHAIR ALL SHIFT AND HAS BEEN ABLE TO MAKE NEEDS KNOWN. MINIMAL PAIN NOTED, ABLE TO FEED SELF.
[2024-07-24 19:24] VITALS: BP 115/63
[2024-07-24] MEDS ORDERED: Insulin Glargine-Yfgn 100 Unit/mL 3 ML SYR SC SCH (21:00)
--- NOTE | 2024-07-25 04:23 | NUR ---
SHIFT SUMMARY ELISE WAS ALERT AND FULLY ORIENTED ON ASSESSMENT. PT DENIES NEW OR WORSENING CONDITIONS, AND STATES THAT NOTHING HAS CHANGED FOR HER FROM PREVIOUS NOC SHIFT EXCEPT THAT SHE IS FEELING A LITTLE BETTER OVERALL DRESSING C/D/I, PEDAL PULSES PALPABLE, SENSATION INTACT. NO ACUTE EVENTS TONIGHT. PAIN WELL CONTROLLED.
[2024-07-25 05:37] VITALS: BP 138/72
[2024-07-25 07:48] VITALS: BP 121/68
[2024-07-25] MEDS ORDERED: OXAYDO5 M1 PO (10:09)
[2024-07-25] MEDS ORDERED: HYDCHL25 PO (12:53)
[2024-07-25] MEDS ORDERED: DOCU100 PO (12:53)
[2024-07-25] MEDS ORDERED: METO25ER PO (12:53)
[2024-07-25] MEDS ORDERED: OXYC10TA19 PO (12:55)
--- NOTE | 2024-07-25 16:24 | NUR ---
pt is going home on h.h., she is being taken by wheelchair van, piv removed intact, went over her discharge paperwork, she verbalized understanding, medicated for pain, she states her medications can be delieved to her, left with transport via wheelchair with all her belongings. her hard copy for pain meds is placed in her discharge folder.
== END 2024-07-25 16:25 | disposition home or self-care (01) | DRG 516 ==
LOC: ER 17:54 → SURS 20:52 → ERHOLD 20:52 → SURS 21:35
PROVIDERS: Internal Medicine; Nurse Practitioner Acute Care; Orthopaedic Surgery Sports Medicine; ADMIT Internal Medicine
PROC: 0QSD04Z Reposition Right Patella with Internal Fixation Device, Open Approach (ICD-10-PCS; principal; 2024-07-22 14:30)
DX: S82.031A Displaced transverse fracture of right patella, initial encounter for closed fracture (principal); Z68.41 Body mass index [BMI] 40.0-44.9, adult; F41.9 Anxiety disorder, unspecified; F32.A Depression, unspecified; I10 Essential (primary) hypertension; E78.1 Pure hyperglyceridemia; K25.9 Gastric ulcer, unspecified as acute or chronic, without hemorrhage or perforation; E11.40 Type 2 diabetes mellitus with diabetic neuropathy, unspecified; G89.4 Chronic pain syndrome; M10.9 Gout, unspecified; E66.01 Morbid (severe) obesity due to excess calories; N39.3 Stress incontinence (female) (male); Z88.1 Allergy status to other antibiotic agents; Z88.6 Allergy status to analgesic agent; Z91.018 Allergy to other foods; Z86.79 Personal history of other diseases of the circulatory system; Z98.890 Other specified postprocedural states; Z79.84 Long term (current) use of oral hypoglycemic drugs; Z79.899 Other long term (current) drug therapy; W01.0XXA Fall on same level from slipping, tripping and stumbling without subsequent striking against object, initial encounter; Z87.19 Personal history of other diseases of the digestive system; Z88.8 Allergy status to other drugs, medicaments and biological substances; Z90.49 Acquired absence of other specified parts of digestive tract; Z90.89 Acquired absence of other organs; M19.90 Unspecified osteoarthritis, unspecified site
CPT/HCPCS: 36415; 73562-RT; 80048; 80053; 82947; 83735; 85025; 85610; 93005; 93010; 97110; 97116; 97162; 97530; 99284-25; A9270; C1713; C1769; J0171; J0690; J1100; J1171; J1815; J1885; J2405; J2704; J2765; J2795; J3370; J3475; J7030; J7120

== ENCOUNTER 2024-08-04 14:33 | Inpatient (IN) | payer OTHER ==
[~2024-08-04] VITALS: Ht 162.6 cm; Wt 108.1 kg
[~2024-08-04 14:33] MED LIST changes: -Bisoprolol Fuma10 MG PO; +GABA800 PO; +OXAYDO5 M1 PO; +OXYC10TA19 PO; +Oxybutynin Chlo10 MG PO; +PROZAC40 MG PO
[2024-08-04 15:29] LABS: BASOPHILS ABSOLUTE AUTO 0.11 K/mm3 (0.00-0.23); BASOPHILS PERCENT AUTO 1 % (0-2); EOSINOPHILS ABSOLUTE AUTO 0.07 K/mm3 (0.00-0.68); EOSINOPHILS PERCENT AUTO 0 % (0-6); Hematocrit 33.7 % (33.0-51.0); Hemoglobin 11.2 g/dL (11.5-16.0); IMMATURE GRAN ABSOLUTE AUTO 0.24 K/mm3 (0.00-0.10); IMMATURE GRAN PERCENT AUTO 1 % (0-1); LYMPHOCYTES ABSOLUTE AUTO 4.23 K/mm3 (0.84-5.20); LYMPHOCYTES PERCENT AUTO 22 % (21-46); MONOCYTES ABSOLUTE AUTO 1.22 K/mm3 (0.16-1.47); MONOCYTES PERCENT AUTO 6 % (4-13); Mean Corpuscular HGB 29.7 pg (26.0-34.0); Mean Corpuscular HGB Conc 33.2 g/dL (31.5-36.5); Mean Corpuscular Volume 89 fL (80-100); NEUTROPHILS ABSOLUTE AUTO 13.14 K/mm3 (1.96-9.15); NEUTROPHILS PERCENT AUTO 69 % (41-73); RDW Standard Deviation 47.4 fL (35.1-46.3); Red Blood Cell Count 3.77 M/mm3 (3.80-5.20); White Blood Cell Count 19.01 K/mm3 (4.00-11.30)
[2024-08-04 15:41] LABS: Albumin, Blood 3.2 g/dL (3.4-5.0); Albumin/Globulin Ratio 0.7 (0.8-1.8); Bilirubin, Total 0.7 mg/dL (0.1-1.0); Calcium, Blood 8.8 mg/dL (8.5-10.1); Creatinine, Blood 0.57 mg/dL (0.40-1.00); Globulin, Blood 4.3 g/dL (2.2-4.0); Magnesium, Blood 1.4 mg/dL (1.6-2.4); Potassium, Blood 3.1 mmol/L (3.5-5.5); Total Protein, Blood 7.5 g/dL (6.4-8.2)
[2024-08-04 16:11] LABS: Platelet Count 370 K/mm3 (150-400)
[2024-08-04 16:12] LABS: Mean Platelet Volume 10.7 fL (9.1-12.4)
[2024-08-04] MEDS ORDERED: Potassium Chl 20MEQ/Water100ML 100 ML IV SCH (16:40)
[2024-08-04] MEDS ORDERED: NS 1,000 ML IV SCH (16:40)
[2024-08-04] MEDS ORDERED: Magnesium Sulf 2 GM/Water 50ML 50 ML IV ONE (16:40)
[2024-08-04] MEDS ORDERED: Potassium Chloride 20 MEQ TabCR PO ONE (16:40)
[2024-08-04 17:02] LABS: Influenza A, PCR NEGATIVE (NEGATIVE); Influenza B, PCR NEGATIVE (NEGATIVE); Resp Syncytial Virus, PCR NEGATIVE (NEGATIVE); SARS-Cov-2 (COVID-19) PCR, MMC NEGATIVE (NEGATIVE)
[2024-08-04] MEDS ORDERED: Ketorolac Tromethamine 30mg Vial IV ONE (18:55)
[2024-08-04] MEDS ORDERED: Potassium Chloride 20 MEQ/15 ML UDC PO ONE (19:40)
[2024-08-04] MEDS ORDERED: Vancomycin HCl 125 MG Cap PO ONE (19:50)
[2024-08-04] MEDS ORDERED: Ondansetron HCl 2 MG / ML 2ML Vial IV PRN (20:15)
[2024-08-04] MEDS ORDERED: Acetaminophen 325 MG TABLET PO PRN (20:15)
[2024-08-04] MEDS ORDERED: OxyCODONE HCL 5 MG TAB PO PRN (20:20)
[2024-08-04] MEDS ORDERED: Vancomycin HCL 250 MG/5 ML 5ML Oral Syringe PO ONE (20:55)
[2024-08-04] MEDS ORDERED: Lactated Ringer's 1,000 ML IV SCH (21:00)
[2024-08-04] MEDS ORDERED: Gabapentin 400 MG Cap PO SCH (21:00)
[2024-08-04] MEDS ORDERED: BusPIRone HCl 10 MG Tab PO SCH (21:00)
[2024-08-04] MEDS ORDERED: Lactobacil 2-S.Thermo-Bifido 1 1 Cap PO SCH (21:00)
[2024-08-04] MEDS ORDERED: OMEP20ER PO (22:49)
[2024-08-04 22:52] VITALS: BP 99/81
[2024-08-04 23:51] VITALS: BP 101/84
--- NOTE | 2024-08-05 00:16 | NUR ---
PATIENT IS NEW ADMIT FROM THE ED. ALERT ORIENTED AND THREE PERSON TRANSFER FROM [facility] TO BED. MILD NAUSEA WITH TRANSFER AND QUICKLY RESOLVED. BEDREST WITH RECENT RIGHT KNEE SURGERY. RIGHT VERTICAL INCISION INTACT. DENIES CHEST PAIN. SOB W/EXERTION. ORIENTED TO ROOM AND CALL LIGHT. WCTM.
[2024-08-05] MEDS ORDERED: Miconazole Nitrate 2% 85 GM PWD TOP SCH ×2 (01:45→09:00)
--- NOTE | 2024-08-05 04:02 | NUR ---
SHIFT SUMMARY PATIENT HAD NO ACUTE CHANGES. NO DIARRHEA AT THIS TIME. ALERT ORIENTED AND BEDREST. DENIES CHEST PAIN AND N/V. SOB W/EXERTION. VSS/AFEBRILE. CBG 274. REPORTED NECK/SHOULDER PAIN AND OXYCODONE 5 MG GIVEN PER EMAR. CALL LIGHT IN REACH. BED IN LOWEST POSITION. WILL CONTINUE TO MONITOR UNTIL DAY SHIFT NURSE ASSUMES CARE.
[2024-08-05 04:29] VITALS: BP 117/75
[2024-08-05 05:50] LABS: BASOPHILS ABSOLUTE AUTO 0.08 K/mm3 (0.00-0.23); BASOPHILS PERCENT AUTO 1 % (0-2); EOSINOPHILS ABSOLUTE AUTO 0.03 K/mm3 (0.00-0.68); EOSINOPHILS PERCENT AUTO 0 % (0-6); Hematocrit 33.6 % (33.0-51.0); Hemoglobin 10.7 g/dL (11.5-16.0); IMMATURE GRAN ABSOLUTE AUTO 0.19 K/mm3 (0.00-0.10); IMMATURE GRAN PERCENT AUTO 1 % (0-1); LYMPHOCYTES ABSOLUTE AUTO 3.41 K/mm3 (0.84-5.20); LYMPHOCYTES PERCENT AUTO 21 % (21-46); MONOCYTES ABSOLUTE AUTO 1.03 K/mm3 (0.16-1.47); MONOCYTES PERCENT AUTO 7 % (4-13); Mean Corpuscular HGB 29.6 pg (26.0-34.0); Mean Corpuscular HGB Conc 31.8 g/dL (31.5-36.5); Mean Corpuscular Volume 93 fL (80-100); Mean Platelet Volume 10.8 fL (9.1-12.4); NEUTROPHILS ABSOLUTE AUTO 11.16 K/mm3 (1.96-9.15); NEUTROPHILS PERCENT AUTO 70 % (41-73); NRBC ABSOLUTE 0.02 K/mm3 (0.00-0.02); NRBC Auto 0.1 /100 WBC (0.0-0.2); Platelet Count 353 K/mm3 (150-400); RDW Coefficient Variation 14.9 % (11.7-14.2); Red Blood Cell Count 3.62 M/mm3 (3.80-5.20)
--- NOTE | 2024-08-05 06:00 | NUR ---
Shift Summary AOx3. Pleasant and able to make needs known. Soft bp's 99/81 and 101/84. Pre-existing yeast infections noted on folds, antonio-rectal area is excoriated with multiple scattered tiny scabs. With regard to code status, patient declines Full Code status. When asked how to proceed in the event that her heart stops while in the hospital, patient responded "Just let me go" and added "It would be too hard for my mom to make that decision. Just let me go in peace." Pt nauseous with bed mobility, states she has vertigo at baseline. Nausea resolved without pharmacological intervention. Once nausea resolved, pt requested for and was given a snack. Hyperglycemic w/ no coverage. All concerns addressed with Dr. Michel Lloyd. Received T.O. as follow: 1) change Full Code to DNR, purple band placed to R wrist 2) order & start Regular insulin on Low CS ACHS as pt is tolerating PO intake 3) continue to monitor the soft bp's noted above 4) order miconazole powder to be applied BID. All orders entered. Patient had minimal sleep and complained mostly of superficial abdominal pain from the yeast infection. Void x 1, incontinent. R knee pain within proportion when moving leg. Declined pain meds.
[2024-08-05 06:12] LABS: Albumin/Globulin Ratio 0.7 (0.8-1.8); Bilirubin, Total 0.5 mg/dL (0.1-1.0); Bun/Creatinine Ratio 32.5 (12.0-20.0); Calcium, Blood 8.6 mg/dL (8.5-10.1); Creatinine, Blood 0.65 mg/dL (0.40-1.00); Globulin, Blood 4.1 g/dL (2.2-4.0); Magnesium, Blood 2.1 mg/dL (1.6-2.4); Potassium, Blood 4.1 mmol/L (3.5-5.5); Total Protein, Blood 7.1 g/dL (6.4-8.2)
[2024-08-05] MEDS ORDERED: Insulin Regular 100 UNIT/ML 10ML Vial SC SCH (07:30)
[2024-08-05 07:38] VITALS: BP 107/93
--- NOTE | 2024-08-05 07:47 | NUR ---
ASSUMPTION OF CARE: ASSUMED CARE OF PATIENT. AWAKE ASLEEP DURING SHIFT CHANGE REPORT. LYING SUPINE IN BED. BREATHING EVEN AND UNLABORED ON RA. PUREWICK IN PLACE WITHOUT OUTPUT. ASKING IF SHE WILL BE ABLE TO GO HOME TODAY SHE IS THE PRIMARY CAREGIVER FOR 80-YEAR-OLD MOTHER. BED IN LOWEST POSITION. CALL LIGHT WITHIN REACH. NO ACUTE NEEDS.
[2024-08-05] MEDS ORDERED: FLUoxetine HCL 20 MG CAP PO SCH (09:00)
[2024-08-05] MEDS ORDERED: Allopurinol 100 MG Tab PO SCH (09:00)
[2024-08-05] MEDS ORDERED: Enoxaparin 40 MG/0.4 ML SYR SC SCH (09:00)
[2024-08-05] MEDS ORDERED: Metoprolol Succinate 25 MG TABCR PO SCH (09:00)
[2024-08-05] MEDS ORDERED: Cholecalciferol 1000 Unit Tablet (=25MCG) PO SCH (09:00)
[2024-08-05] MEDS ORDERED: HydroCHLOROthiazide 25 mg Tab PO SCH (09:00)
[2024-08-05] MEDS ORDERED: Furosemide 20 MG Tab PO SCH (15:00)
[2024-08-05 16:06] VITALS: BP 118/96
[2024-08-05] MEDS ORDERED: Bisoprolol Fumar5 MG PO (16:07)
--- NOTE | 2024-08-05 19:04 | NUR ---
END OF SHIFT SUMMARY: A&Ox4. PLEASANT AND COOPERATIVE WITH CARE. CALLS APPROPRIATELY AND IS ABLE TO ADVOCATE NEEDS EFFECTIVELY. CONTINENT OF BOWEL AND BLADDER BUT LIMITED BY IMPAIRED MOBILITY AND BEDREST. LBM 08/05 @ ADMIT BUT HAS NOT BEEN ABLE TO PRODUCE STOOL SAMPLE SINCE ADMIT. BEDREST AND DOES NOT AMBULATE. MEDS WHOLE c FLUIDS. NO C /O PAIN OR DISCOMFORT IN GENERAL UNTIL THIS EVENING; MEDICATED PRN OXYCODONE AND PRN ZOFRAN FOR NAUSEA AND WAS ABLE TO EAT SOME DINNER. NO VOID TODAY. BED IN LOWEST POSITION, CALL LIGHT WITHIN REACH, ALL NEEDS MET. REPORT TO ONCOMING NURSE.
[2024-08-05 19:11] VITALS: BP 104/73
[2024-08-06] VITALS (25 sets, daily range): BP systolic 94–141; BP diastolic 58–97
--- NOTE | 2024-08-06 04:16 | NUR ---
Shift Summary AOx3. Patient slept throughout the night. Easily awakes to verbal stimuli. It appears patient may be somewhat confused. Last night, patient introduced family friend to this RN as an old employee; however, today, it was confirmed with the family friend that there was no such relationship between patient and family friend. Void x 1, continent via bedpan; followed up with a bladder scan later in the shift, see chart. Skin tone appears to be paler with worsening edema as evidence by facial swelling particulary around the eyes and BUE's as well as increased swelling in BLEs; BLE's are tender to palpate, all of which are new. No stool produced this shift. Per hospital policy, order for occult stool will be auto-cancelled after 48 hours of no diarrheal stool. Patient remains on contact iso. Call light within reach. VSS.
[2024-08-06 05:14] LABS: BASOPHILS ABSOLUTE AUTO 0.07 K/mm3 (0.00-0.23); BASOPHILS PERCENT AUTO 0 % (0-2); EOSINOPHILS PERCENT AUTO 0 % (0-6); Hematocrit 37.8 % (33.0-51.0); Hemoglobin 11.9 g/dL (11.5-16.0); IMMATURE GRAN ABSOLUTE AUTO 0.65 K/mm3 (0.00-0.10); IMMATURE GRAN PERCENT AUTO 3 % (0-1); LYMPHOCYTES ABSOLUTE AUTO 3.72 K/mm3 (0.84-5.20); LYMPHOCYTES PERCENT AUTO 18 % (21-46); MONOCYTES ABSOLUTE AUTO 1.09 K/mm3 (0.16-1.47); MONOCYTES PERCENT AUTO 5 % (4-13); Mean Corpuscular HGB 29.8 pg (26.0-34.0); Mean Corpuscular HGB Conc 31.5 g/dL (31.5-36.5); Mean Corpuscular Volume 95 fL (80-100); Mean Platelet Volume 10.6 fL (9.1-12.4); NEUTROPHILS ABSOLUTE AUTO 15.14 K/mm3 (1.96-9.15); NEUTROPHILS PERCENT AUTO 73 % (41-73); NRBC Auto 0.5 /100 WBC (0.0-0.2); Platelet Count 437 K/mm3 (150-400); RDW Standard Deviation 51.6 fL (35.1-46.3); White Blood Cell Count 20.67 K/mm3 (4.00-11.30)
[2024-08-06 05:32] LABS: Bun/Creatinine Ratio 23.1 (12.0-20.0); Calcium, Blood 9.1 mg/dL (8.5-10.1); Creatinine, Blood 1.47 mg/dL (0.40-1.00); Potassium, Blood 4.8 mmol/L (3.5-5.5)
--- NOTE | 2024-08-06 05:46 | NUR ---
CALLED HOSPITALIST INFORMED HIM OF PATIENT'S LABS, PALE APPEARANCE, AND TACHYPNEA. VITALS ALL WNL. HOWEVER PATIENT APPEARS UNWELL. CHARGE ALSO INFORMED, HE ASSESSED THE PATIENT ALSO AND AGREES WITH THIS RN. NEW LABS ORDERED. AWAITING RESULTS.
[2024-08-06 06:03] LABS: Base Excess Venous -13.3 mmol/L; Bicarbonate Venous 14.3 mmol/L (24.0-30.0); PCO2 Venous 35.3 mmHg (38-42); pH Blood Venous 7.22 (7.34-7.37)
[2024-08-06 06:13] LABS: Albumin/Globulin Ratio 0.7 (0.8-1.8); Beta-hydroxybutyrate 3.7 mg/dL (0.2-2.8); Bilirubin, Direct 0.3 mg/dL (0.0-0.3); Bilirubin, Indirect 0.4 mg/dL (0.1-0.7); Bilirubin, Total 0.7 mg/dL (0.1-1.0); Globulin, Blood 4.1 g/dL (2.2-4.0); Total Protein, Blood 7.1 g/dL (6.4-8.2)
--- NOTE | 2024-08-06 06:19 | NUR ---
ORDER RECEIVED V.O. RECEIVED FROM DR. NICOLAS STAUFFER FOR A STAT CT-ABDOMEN/PELVIS. INDICATION FOR THIS ORDER IS ABDOMINAL PAIN.
[2024-08-06] MEDS ORDERED: Sodium Bicarb 8.4% 1 MEQ/ML 50 ML Vial IV ONE (06:20)
[2024-08-06 06:38] LABS: Free Thyroxine 1.45 ng/dL (0.70-1.60); Thyroid Stimulating Hormone 0.502 uIU/mL (0.360-4.800)
[2024-08-06] MEDS ORDERED: Ampicillin Sod/Sulbactam Sod 3 GM in NS 100 ML IV ONE (06:40)
[2024-08-06] MEDS ORDERED: Lactated Ringer's 500 ML IV SCH (07:00)
[2024-08-06] MEDS ORDERED: Ondansetron HCl 2 MG / ML 2ML Vial IV PRN (07:15)
[2024-08-06] MEDS ORDERED: D5W-1/4NS KCl 20mEq 1,000 ML IV SCH ×2 (07:20→08:05)
[2024-08-06] MEDS ORDERED: Insulin Human Regular 100 UNIT in NS 100 ML IV SCH (07:30)
[2024-08-06] MEDS ORDERED: Dextrose 50% 50 ML Vial IV PRN (07:30)
[2024-08-06 07:41] LABS: Source, Urine Foley catheter
[2024-08-06 07:50] LABS: Appearance, Urine Hazy (Clear); Blood, Urine 1+ (Neg); Color, Urine Yellow (P-Yellow); Glucose Qualitative, Urine 3+ (Neg); Ketones, Urine Neg (Neg); Leukocyte Esterase, Urine Neg (Neg); Nitrite, Urine Neg (Neg); Protein, Urine 3+ (Neg); Specific Gravity, Urine 1.025 (1.003-1.022); Urobilinogen, Urine NORM (Normal)
[2024-08-06 07:52] LABS: Bilirubin, Urine 1+ (Neg)
[2024-08-06 07:57] LABS: Hyaline Casts 25-50 /lpf (0-2); Squamous Epithelial Cells Many /hpf (Few)
[2024-08-06 07:58] LABS: Mucus Mod (0-Heavy)
[2024-08-06 07:59] LABS: Bacteria Many /hpf; Calcium Oxalate Crystals Rare /hpf; Granular Casts 0-2 /lpf (0)
--- NOTE | 2024-08-06 08:10 | NUR ---
[place] of care: Patient is drowsy but oriented x3 & cooperative, following all commands but with generalized weakness. She is in NSR in the 80s with SBPs 90-100. Thready pulses, edema to bilat LE, pale, cool extremities, swollen in the face. Tachypneic in the high 20s to low 30s, on 4L NC with oxygen saturations in the low 90s. Lung sounds clear to auscultation. Muñiz catheter placed & urine sent to lab. NPO. Results of CT showing acute PE. Discussed plan of care with Dr. Loving. Awaiting PICC placement.
[2024-08-06 09:39] LABS: Bun/Creatinine Ratio 28.9 (12.0-20.0); Calcium, Blood 8.8 mg/dL (8.5-10.1); Creatinine, Blood 1.21 mg/dL (0.40-1.00); Potassium, Blood 4.7 mmol/L (3.5-5.5)
[2024-08-06 10:13] LABS: Anti-Xa UFH, PHA Monitoring <0.10 IU/mL; International Normalized Ratio 1.38; Prothrombin Time Results 14.4 Sec (9.7-11.5)
[2024-08-06] MEDS ORDERED: Dose Adjust by Pharmacy XX STA ×2 (10:26→16:50)
[2024-08-06] MEDS ORDERED: Heparin Sodium,Porcine/0.5 NS 500 ML IV SCH (10:30)
[2024-08-06] MEDS ORDERED: Heparin Sodium 5000 Units/ML 1ML MDV IV ONE (10:30)
[2024-08-06] MEDS ORDERED: CefTRIAXone Sodium 2,000 MG in NS 100 ML IV SCH (12:00)
[2024-08-06] MEDS ORDERED: NS 250 ML IV PRN (12:00)
[2024-08-06 13:25] LABS: Calcium, Blood 8.7 mg/dL (8.5-10.1); Creatinine, Blood 1.13 mg/dL (0.40-1.00)
[2024-08-06 14:04] LABS: Base Excess Venous -1.6 mmol/L; Bicarbonate Venous 22.2 mmol/L (24.0-30.0); PCO2 Venous 41.8 mmHg (38-42); pH Blood Venous 7.37 (7.34-7.37)
[2024-08-06] MEDS ORDERED: Pantoprazole Sodium 40 MG Tab PO SCH (16:30)
[2024-08-06 17:24] LABS: Bun/Creatinine Ratio 35.1 (12.0-20.0); Calcium, Blood 8.5 mg/dL (8.5-10.1); Creatinine, Blood 0.97 mg/dL (0.40-1.00); Potassium, Blood 4.1 mmol/L (3.5-5.5)
--- NOTE | 2024-08-06 18:10 | NUR ---
Shift summary: Sleepy throughout afternoon but arouses easily & remains oriented x3. In NSR in the 80s with stable blood pressures. Remains on 4L NC with clear lung sounds. No BM & roughly 600cc amy urine out of degroot. NPO pending transfer to outside facility. PICC & PIV. Insulin gtt infusing per protocol. Heparin gtt at 16 units/kg/hr. D51/4NS with 20 KCL at 100 cc/hr. Brother updated by kylah Madrid RN at patient request. Awaiting transfer to [place] once flight transport is available. Will continue to monitor.
== END 2024-08-06 19:00 | disposition short-term general hospital (02) | DRG 175 ==
LOC: ER 14:33 → ICUE 14:34 → ERHOLD 14:34 → MEDS 14:34 → ICUE 08-06 06:47
PROVIDERS: Hospitalist; Internal Medicine; Student in an Organized Health Care Education/Training Program; ADMIT Student in an Organized Health Care Education/Training Program
PROC: 02HV33Z Insertion of Infusion Device into Superior Vena Cava, Percutaneous Approach (ICD-10-PCS; principal; 2024-08-06)
DX: I26.09 Other pulmonary embolism with acute cor pulmonale (principal); E11.10 Type 2 diabetes mellitus with ketoacidosis without coma; E87.1 Hypo-osmolality and hyponatremia; N17.9 Acute kidney failure, unspecified; R57.9 Shock, unspecified; I07.1 Rheumatic tricuspid insufficiency; I27.20 Pulmonary hypertension, unspecified; I87.8 Other specified disorders of veins; F32.A Depression, unspecified; D64.9 Anemia, unspecified; D72.829 Elevated white blood cell count, unspecified; Z66 Do not resuscitate; R19.7 Diarrhea, unspecified; E83.42 Hypomagnesemia; E87.6 Hypokalemia; M19.90 Unspecified osteoarthritis, unspecified site; R09.02 Hypoxemia; F41.9 Anxiety disorder, unspecified; E66.01 Morbid (severe) obesity due to excess calories; S82.001D Unspecified fracture of right patella, subsequent encounter for closed fracture with routine healing; X58.XXXD Exposure to other specified factors, subsequent encounter; Z68.36 Body mass index [BMI] 36.0-36.9, adult; Z88.1 Allergy status to other antibiotic agents; Z88.8 Allergy status to other drugs, medicaments and biological substances; Z79.84 Long term (current) use of oral hypoglycemic drugs
CPT/HCPCS: 0241U; 36415; 36569; 51702; 71046; 71260; 74177; 80048; 80053; 80076; 81001; 82010; 82803; 82947; 83605; 83690; 83735; 83880; 84439; 84443; 84484; 85025; 85520; 85610; 85730; 87086; 93005; 93010; 93971; 96365; 96366; 96367; 96368; 96375; 99285-25; A6590; A9270; C1751; C8929; G0378; J0295; J0696; J1644; J1650; J1815; J1885; J2405; J3475; J3480; J7030; J7050; Q9957; Q9967

== ENCOUNTER → 2024-10-12 | Outpatient (CLI) | payer OTHER ==
[~2024-10-12] MED LIST changes: +Bisoprolol Fumar5 MG PO
[2024-10-12 20:18] LABS: Alanine Aminotransfer (ALT/SGP 14.0 U/L (12-78); Albumin, Blood 3.6 g/dL (3.4-5.0); Albumin/Globulin Ratio 0.9 (0.8-1.8); Anion Gap 6.0 mmol/L (3-11); Aspartate Aminotrans (AST/SGOT 12.0 U/L (12-37); Bilirubin, Total 0.5 mg/dL (0.1-1.0); Blood Urea Nitrogen 8.0 mg/dL (8-24); CO2, Blood 26.0 mmol/L (21-32); Calcium, Blood 9.4 mg/dL (8.5-10.1); Chloride, Blood 107.0 mmol/L (98-108); Creatinine, Blood 0.61 mg/dL (0.40-1.00); Globulin, Blood 4.1 g/dL (2.2-4.0); Glucose, Blood 123.0 mg/dL (70-99); Potassium, Blood 3.3 mmol/L (3.5-5.5); Sodium, Blood 136.0 mmol/L (136-145); Total Protein, Blood 7.7 g/dL (6.4-8.2)
== END ==
LOC: LAB 14:49 → LAB SHORT 14:49
PROVIDERS: Family Medicine
DX: R60.9 Edema, unspecified (principal)
CPT/HCPCS: 80053

== ENCOUNTER 2024-12-23 10:38 | Inpatient (IN) | payer OTHER ==
[~2024-12-23] VITALS: Ht 162.6 cm; Wt 99.3 kg
[~2024-12-23 10:38] MED LIST changes: +GABA400 PO; -GABA800 PO; -PROZAC40 MG PO; +Prozac40 MG PO
[2024-12-23] MEDS ORDERED: FentaNYL Citrate 50 MCG/ML 2 ML Injection IV ONE ×2 (11:00→14:30)
[2024-12-23 11:09] LABS: BASOPHILS ABSOLUTE AUTO 0.06 K/mm3 (0.00-0.23); BASOPHILS PERCENT AUTO 1 % (0-2); EOSINOPHILS ABSOLUTE AUTO 0.07 K/mm3 (0.00-0.68); EOSINOPHILS PERCENT AUTO 1 % (0-6); Hematocrit 37.8 % (33.0-51.0); Hemoglobin 12.3 g/dL (11.5-16.0); IMMATURE GRAN ABSOLUTE AUTO 0.03 K/mm3 (0.00-0.10); IMMATURE GRAN PERCENT AUTO 0 % (0-1); LYMPHOCYTES ABSOLUTE AUTO 2.80 K/mm3 (0.84-5.20); LYMPHOCYTES PERCENT AUTO 31 % (21-46); MONOCYTES ABSOLUTE AUTO 0.51 K/mm3 (0.16-1.47); MONOCYTES PERCENT AUTO 6 % (4-13); Mean Corpuscular HGB Conc 32.5 g/dL (31.5-36.5); Mean Corpuscular Volume 86 fL (80-100); NEUTROPHILS ABSOLUTE AUTO 5.44 K/mm3 (1.96-9.15); NEUTROPHILS PERCENT AUTO 61 % (41-73); NRBC ABSOLUTE 0.00 K/mm3 (0.00-0.02); NRBC Auto 0.0 /100 WBC (0.0-0.2); Platelet Count 288 K/mm3 (150-400); RDW Coefficient Variation 15.1 % (11.7-14.2); RDW Standard Deviation 47.7 fL (35.1-46.3)
[2024-12-23 11:57] LABS: Anion Gap 11.0 mmol/L (3-11); Blood Urea Nitrogen 7.0 mg/dL (8-24); CO2, Blood 23.0 mmol/L (21-32); Calcium, Blood 9.4 mg/dL (8.5-10.1); Chloride, Blood 106.0 mmol/L (98-108); Creatinine, Blood 0.64 mg/dL (0.40-1.00); Glucose, Blood 122.0 mg/dL (70-99); Magnesium, Blood 1.8 mg/dL (1.6-2.4); Potassium, Blood 3.0 mmol/L (3.5-5.5); Sodium, Blood 137.0 mmol/L (136-145); Thyroid Stimulating Hormone 1.33 uIU/mL (0.360-4.800)
[2024-12-23 15:14] LABS: Source, Urine Clean Catch
[2024-12-23 15:17] LABS: Bilirubin, Urine Neg (Neg); Glucose Qualitative, Urine 4+ (Neg); Ketones, Urine 3+ (Neg); Leukocyte Esterase, Urine 3+ (Neg); Protein, Urine 2+ (Neg); Specific Gravity, Urine 1.015 (1.003-1.022); Urobilinogen, Urine NORM (Normal)
[2024-12-23] MEDS ORDERED: LIDO700A20 TOP (15:21)
[2024-12-23] MEDS ORDERED: ACET500 PO ×2 (15:21→18:08)
[2024-12-23 15:24] LABS: Color, Urine Pale Yellow (P-Yellow); White Blood Cells, Urine TNTC /hpf (0-5)
[2024-12-23] MEDS ORDERED: CefTRIAXone Sodium 1,000 MG in NS 100 ML IV ONE (15:40)
[2024-12-23] MEDS ORDERED: Prochlorperazine Edisylate 10 mg Vial IV PRN (16:15)
[2024-12-23] MEDS ORDERED: FLU VACC TS2025-26(6MOS UP)/PF 45 MCG/0.5 ML SYRINGE IM SCH (16:15)
[2024-12-23] MEDS ORDERED: NS 1,000 ML IV SCH (16:15)
[2024-12-23] MEDS ORDERED: CefTRIAXone Sodium 1,000 MG in NS 100 ML IV SCH (18:00)
[2024-12-23] MEDS ORDERED: PANT20 PO (18:09)
[2024-12-23] MEDS ORDERED: FAMO20 PO (18:10)
[2024-12-23] MEDS ORDERED: STEGLATRO15 MG PO (18:10)
[2024-12-23 18:11] VITALS: BP 138/81
[2024-12-23] MEDS ORDERED: FLONASE ALLERG9.9 M2 (18:11)
[2024-12-23] MEDS ORDERED: ELIQUIS5 M2 PO (18:12)
[2024-12-23] MEDS ORDERED: FISH OIL 1,0001 EA10 PO (18:12)
[2024-12-23] MEDS ORDERED: ATOR20 PO (18:13)
[2024-12-23] MEDS ORDERED: MOBISYL TOP (18:13)
[2024-12-23 19:41] VITALS: BP 128/70
[2024-12-23] MEDS ORDERED: Insulin Glargine 100 Unit/ML 3 ML SYR SC SCH (21:00)
[2024-12-24 02:37] VITALS: BP 127/70
--- NOTE | 2024-12-24 03:49 | NUR ---
SHIFT SUMMARY ADMITTED FOR WEAKNESS/PAIN FROM GLF. DNR. FOUND TO HAVE A UTI. IV ANTIB RX ARE SCHEDULED. IV FLUID IS INFUSING. PUREWICK IN PLACE. ADA DIET. ACHS CBG'S. ON RA. A&O X2-3, FORGETFUL. SHE IS ON ELIQUIS. PALLIATIVE CARE IS CONSULTED. SHE DOES LIVE ALONE. CT SCAN SHOWS RIB AND STERNUM FRACTURES OF UNKNOWN AGE. THERE ARE NO CAREGIVERS IN PLACE AT HOME
[2024-12-24 05:31] LABS: BASOPHILS ABSOLUTE AUTO 0.05 K/mm3 (0.00-0.23); BASOPHILS PERCENT AUTO 1 % (0-2); EOSINOPHILS ABSOLUTE AUTO 0.11 K/mm3 (0.00-0.68); EOSINOPHILS PERCENT AUTO 2 % (0-6); Hematocrit 34.8 % (33.0-51.0); Hemoglobin 11.3 g/dL (11.5-16.0); IMMATURE GRAN ABSOLUTE AUTO 0.04 K/mm3 (0.00-0.10); IMMATURE GRAN PERCENT AUTO 1 % (0-1); LYMPHOCYTES ABSOLUTE AUTO 2.33 K/mm3 (0.84-5.20); LYMPHOCYTES PERCENT AUTO 32 % (21-46); MONOCYTES ABSOLUTE AUTO 0.50 K/mm3 (0.16-1.47); MONOCYTES PERCENT AUTO 7 % (4-13); Mean Corpuscular HGB Conc 32.5 g/dL (31.5-36.5); Mean Corpuscular Volume 89 fL (80-100); NEUTROPHILS ABSOLUTE AUTO 4.32 K/mm3 (1.96-9.15); NEUTROPHILS PERCENT AUTO 59 % (41-73); NRBC ABSOLUTE 0.00 K/mm3 (0.00-0.02); NRBC Auto 0.0 /100 WBC (0.0-0.2); Platelet Count 243 K/mm3 (150-400); RDW Coefficient Variation 15.3 % (11.7-14.2); RDW Standard Deviation 50.0 fL (35.1-46.3)
[2024-12-24 06:19] LABS: Anion Gap 9.0 mmol/L (3-11); Blood Urea Nitrogen 10.0 mg/dL (8-24); CO2, Blood 25.0 mmol/L (21-32); Calcium, Blood 8.4 mg/dL (8.5-10.1); Chloride, Blood 105.0 mmol/L (98-108); Creatinine, Blood 0.69 mg/dL (0.40-1.00); Glucose, Blood 124.0 mg/dL (70-99); Potassium, Blood 3.4 mmol/L (3.5-5.5); Sodium, Blood 136.0 mmol/L (136-145); Thyroid Stimulating Hormone 1.17 uIU/mL (0.360-4.800)
[2024-12-24 07:35] VITALS: BP 132/65
[2024-12-24 09:20] LABS: U Amphetamine Screen Not Detected; U Barbituate Screen Not Detected; U Benzodiazapine Screen Not Detected; U Buprenorphine Screen Not Detected; U Cannabinoids Screen Not Detected; U Cocaine Screen Not Detected; U Methadone Screen Not Detected; U Methamphetamine Screen Not Detected; U Opiates Screen Not Detected; U Oxycodone Screen Not Detected; U Phencyclidine Screen Not Detected
--- NOTE | 2024-12-24 11:43 | NUR ---
Spiritual Care Visit. Pt. is awake and sitting up in a chair when she welcomes my visit. Pt. is pleasant, but displays ocassional discomfort. Pt. verbalizes the details of a recent fall and how she hit her head on the car bumnper. Listen with empathy and a calming presence. Facilitated more life review in which the Pt. shared details about strained family relationships. With pastoral engagement the Pt. welcomed prayer. Prayed with the Pt. Pt. verbalized gratitude for the spiritual care visit.
[2024-12-24 15:22] VITALS: BP 108/86
--- NOTE | 2024-12-24 18:40 | NUR ---
SUMMARY PT HAD A POTASSIUM OF 3.4 THIS AM, REPLACED BY DR. SIMS WITH 40 MEQ'S. PT EVAL COMPLETED, PT GOT UP TO CHAIR, WAS UP IN CHAIR FOR A FEW HOURS. 2 ASSIST BACK TO BED. PRN TYLENOL GIVEN THIS AFTERNOON FOR STERNAL PAIN, RELATED TO FRACTURE. THIS EVENING PT WAS SEEN BY DENTAL HYGENIST AND AFTER DINNER SHE REPORTED A 10/10 TOOTHACHE, PRN TYLENOL WAS GIVEN AND ICE PROVIDED. WITH IT BEING 1839 WILL NOTIFY ONCOMING SHIFT ABOUT A POSSIBLE STRONGER PAIN REGIMEN FOR TOOTHACHE IF CURRENT INTERVENTIONS INEFFECTIVE. IVF INFUSING AT 75 ML/HR. URINE TOX SCREEN WAS COLLECTED THIS AM. DR. BELTRAN ORDERED LAB TO SCREEN FOR MYASTHENIA GRAVIS, PENDING RESULTS.
[2024-12-24 19:57] VITALS: BP 109/65
[2024-12-25 02:21] VITALS: BP 127/72
--- NOTE | 2024-12-25 04:06 | NUR ---
SHIFT SUMMARY ADMITTED FOR WEAKNESS. DNR CODE. MULTIPLE GLF'S AT HOME. UTI+. IV ANTIB RX ARE SCHEDULED. CT SHOWS FRACTURES OF RIBS AND STERNUM, UNDETERMINED AGE. PUREWICK IN PLACE. ACHS CBG'S. ADA DIET. SHE IS ON ELIQUIS. IV FLUIDS INFUSING. A&O X3, FLAT AFFECT & FORGETFUL. PALLIATIVE CARE IS CONSULTED. CARE MANAGEMENT CONSULTED FOR HOUSING, FOOD & BILL INSECURITIES. SHE DOES LIVE ALONE, SHE DOES NOT HAVE CAREGIVERS.
[2024-12-25 05:22] LABS: BASOPHILS ABSOLUTE AUTO 0.06 K/mm3 (0.00-0.23); BASOPHILS PERCENT AUTO 1 % (0-2); EOSINOPHILS ABSOLUTE AUTO 0.12 K/mm3 (0.00-0.68); EOSINOPHILS PERCENT AUTO 2 % (0-6); Hematocrit 35.0 % (33.0-51.0); Hemoglobin 11.2 g/dL (11.5-16.0); IMMATURE GRAN ABSOLUTE AUTO 0.04 K/mm3 (0.00-0.10); IMMATURE GRAN PERCENT AUTO 1 % (0-1); LYMPHOCYTES ABSOLUTE AUTO 2.58 K/mm3 (0.84-5.20); LYMPHOCYTES PERCENT AUTO 36 % (21-46); MONOCYTES ABSOLUTE AUTO 0.51 K/mm3 (0.16-1.47); MONOCYTES PERCENT AUTO 7 % (4-13); Mean Corpuscular HGB Conc 32.0 g/dL (31.5-36.5); Mean Corpuscular Volume 89 fL (80-100); NEUTROPHILS ABSOLUTE AUTO 3.87 K/mm3 (1.96-9.15); NEUTROPHILS PERCENT AUTO 54 % (41-73); NRBC ABSOLUTE 0.00 K/mm3 (0.00-0.02); NRBC Auto 0.0 /100 WBC (0.0-0.2); Platelet Count 247 K/mm3 (150-400); RDW Coefficient Variation 15.3 % (11.7-14.2); RDW Standard Deviation 49.7 fL (35.1-46.3)
[2024-12-25 06:29] LABS: Anion Gap 11.0 mmol/L (3-11); Blood Urea Nitrogen 9.0 mg/dL (8-24); CO2, Blood 24.0 mmol/L (21-32); Calcium, Blood 8.8 mg/dL (8.5-10.1); Chloride, Blood 107.0 mmol/L (98-108); Creatinine, Blood 0.6 mg/dL (0.40-1.00); Glucose, Blood 119.0 mg/dL (70-99); Potassium, Blood 3.5 mmol/L (3.5-5.5); Sodium, Blood 138.0 mmol/L (136-145)
[2024-12-25 07:25] VITALS: BP 121/66
[2024-12-25 16:11] VITALS: BP 122/72
--- NOTE | 2024-12-25 16:57 | NUR ---
SHIFT SUMMARY: A&OX4 THROUGHOUT SHIFT. PLEASANT AND COOPERATIVE WITH CARE. ENCOURAGED PATIENT MULTIPLE TIMES TO AMBULATE AND GET OUT OF THE BED TODAY. PT WAS ABLE TO SIT UP IN THE CHAIR FOR A COUPLE HOURS. COMPLAINTS OF PAIN AND MEDICATED PER EMAR. BREATHING EQUAL AND NONLABORED. DENIES CHEST PAIN AND/OR PRESSURE. LYING IN BED AT THIS TIME. BED LOCKED AND IN THE LOWEST POSITION.
[2024-12-25 19:40] VITALS: BP 120/78
[2024-12-26 04:31] VITALS: BP 132/68
--- NOTE | 2024-12-26 05:11 | NUR ---
NO ACUTE CHANGES DURING SHIFT. PATIENT ALERT AND ORIENTED X4, ABLE TO MAKE NEEDS KNOWN. PATIENT IS A HEAVY TWO ASSIST TO BSC. PATIENT RECEIVING ANTIBIOTICS IV. PATIENT ON ROOM AIR. BED IN LOW POSITION WITH WHEELS LOCKED. CALL LIGHT WITHIN REACH.
[2024-12-26] MEDS ORDERED: FentaNYL Citrate 50 MCG/ML 2 ML Injection IV PRN (06:00)
[2024-12-26 06:19] VITALS: BP 109/71
[2024-12-26 07:14] VITALS: BP 111/67
[2024-12-26] MEDS ORDERED: Cholecalciferol 1000 Unit Tablet (=25MCG) PO SCH (09:00)
[2024-12-26 16:38] VITALS: BP 128/60
--- NOTE | 2024-12-26 18:29 | NUR ---
SHIFT SUMMARY: PATIENT MEDICATED FOR STERNUM/RIB PAIN PER EMAR c MOD EFFECT. PATIENT SAT UP IN CHAIR FOR ALL MEALS, TOLERATED WELL. PATIENT A/OX4, PLEASANT AND COOPERATIVE c CARE. PATIENT HAS GOOD APPETITE, INCONTINENT OF BLADDER, ATTENDS IN PLACED AND CHANGED PRN. VITAL SIGNS REVIEWED. PATIENT HAS HAD NO COMPLAINTS OR DENIES NEW CONCERNED THIS SHIFT. CALL LIGHT IN REACH.
[2024-12-26 19:44] VITALS: BP 136/107
[2024-12-26 20:17] VITALS: BP 115/68
[2024-12-27 04:20] VITALS: BP 135/76
--- NOTE | 2024-12-27 05:22 | NUR ---
NO ACUTE CHANGES DURING SHIFT. PATIENT ALERT AND ORIENTED X4, ABLE TO MAKE NEEDS KNOWN. PATIENT WAS GIVE TYLENOL FOR PAIN. PATIENT INCONTINENT OF BLADDER. BRIEF AND PURWICK IN PLACE. PATIENT ON ROOM AIR. PATIENT ASSISTED WITH TURNING. BED IN LOW POSITION, WITH WHEELS LOCKED. CALL LIGHT WITHIN REACH.
[2024-12-27 07:47] VITALS: BP 105/79
[2024-12-27 14:27] VITALS: BP 152/62
--- NOTE | 2024-12-27 14:39 | NUR ---
AM NOTE: PATIENT REPORTS PAIN/DISCOMFORT TO RIBS AREA AND REQUESTIONS ASPERCREME TOPICAL CREAM. PATIENT STATED "I NORMALLY USES AT HOME AND IT DOES HELP." NOTIFIED DR. BELTRAN. RECEIVED ORDER TO GIVE ASPERCREME TOPICAL CREAM EVERY 4 HRS FOR PAIN.
[2024-12-27] MEDS ORDERED: TROLAMINE SALICYLATE 10% CREAM 141 GM TUBE TOP PRN (14:50)
--- NOTE | 2024-12-27 18:20 | NUR ---
SHIFT SUMMARY: PATIENT AGREEABLE TO SNF RECOMMENDATION, PREFERRED [facility]. PER PATIENT HER MOM LIVES IN [facility] FOR A YEAR NOW. PATIENT MEDICATED FOR PAIN PER EMAR c MOD EFFECT. PATIENT 1 ASSIST/FWW FOR TRANSFRER, SAT UP IN CHAIR FOR ABOUT FIVE HRS THIS SHIFT, TOLERATED WELL. PATIENT INCONTINENT OF BLADDER, PUREWICK IN PLACED, GOOD APPETITE, RECEIVED SCHEDULED MEDS PER EMAR. VITAL SIGNS REVIEWED. PATIENT A/OX4, PLEASANT AND COOPERATIVE c CARE. BED IN LOWEST POSITION. CALL LIGHT IN REACH.
[2024-12-27 20:56] VITALS: BP 114/75
--- NOTE | 2024-12-28 04:11 | NUR ---
NO ACUTE CHANGES DURING SHIFT. PATIENT ALERT AND ORIENTED X4, ABLE TO MAKE NEEDS KNOWN. PATIENT ON ROOM AIR WITH PURWICK IN PLACE. TYLENOL GIVEN FOR PAIN. PATIENT ENCOURAGED TO FREQUENTLY TURN IN BED. BED IN LOW POSITION WITH WHEELS LOCKED. CALL LIGHT WITHIN REACH.
[2024-12-28 05:38] VITALS: BP 118/82
[2024-12-28 08:10] VITALS: BP 120/78
--- NOTE | 2024-12-28 11:58 | NUR ---
SPOKE WITH PATIENT ABOUT PAIN MANAGEMENT. PATIENT STATES SHE FEELS LIKE THE TYLENOL IS ENOUGH EVEN THOUGH WITH MOVEMENT HER PAIN IS INCREASING. WE DISCUSSED OPTIONS AND SHE SAID SHE WOULD LET ME KNOW IF HER PAIN CONTINUES TO GET WORSE. SHE IS UP IN THE CHAIR FOR LUNCH, HEATING PAD IN PLACE AND TYLENOL GIVEN PER EMAR. DR CONSULTED ABOUT BOWEL CARE, ORDERS PLACED.
[2024-12-28] MEDS ORDERED: Glycerin Adult Supp 1 EA PR ONE (13:10)
[2024-12-28] MEDS ORDERED: Ketorolac Tromethamine 15mg Vial IV PRN (15:50)
[2024-12-28 16:50] VITALS: BP 116/73
--- NOTE | 2024-12-28 18:04 | NUR ---
PATIENT GIVEN SUPP AND ENEMA WITHOUT RELIEF TODAY. PATIENT STATES SHE CHRONICALLY STRUGGLES WITH CONSTIPATION. TYLENOL AND TORADOL FOR PAIN RELIEF. 1 PERSON SBA TO BS. PABLO IN PLACE. A&OX4, CALLS WHEN NEEDED.
[2024-12-28 19:22] VITALS: BP 113/68
--- NOTE | 2024-12-29 04:16 | NUR ---
MANAGER EQUIPMENT SUMMARY PT A&OX4, VSS. PT HAS BEEN ASLEEP FOR MOST OF THE NIGHT. CHEST RISE/RESPIRATIONS NOTED. ABLE TO MAKE NEEDS KNOWN WELL AND USES CALL LIGHT APPROPRIATELY. USES BSC W/ SBA AND HAD MOD SIZED BM TODAY EARLY IN THE SHIFT. PT STATES RELIEF W/ BM. TORADAL ADMIN 1X FOR 5/10 STERUM/RIB PAIN W/ GOOD EFFECT. BED RAILS UP X 2, BED IN LOWEST POSITION, BED WHEELS LOCKED, PERSONAL BELONGINGS AND CALL LIGHT WITHIN REACH FOR SAFETY.
[2024-12-29 05:02] VITALS: BP 116/73
[2024-12-29 07:15] VITALS: BP 108/80
[2024-12-29] MEDS ORDERED: Polyethylene Glycol 3350 17 gm PO SCH (09:00)
[2024-12-29] MEDS ORDERED: Docusate Sodium/Senna 1 Tab PO SCH (09:00)
--- NOTE | 2024-12-29 11:05 | NUR ---
Spiritual Care Visit. Pt. is awake in bed when she welcomes my visit. Pt. is pleasant. Rapport is quickly re-established as this director of philanthropy has previously visited this Pt. verbalizes that she feels she is doing better but has an expectation to be discharged to a rehab facility. Pt. verbalized her preference was [facility] as her mother is a current Pt. there. Pt. displayed a bright and positive countenance and welcomed prayer. Prayed with the Pt. Pt. verbalized gratitude for the spiritual care visit.
[2024-12-29] MEDS ORDERED: DOCUZEN 8.6-501 EACH PO (12:52)
[2024-12-29] MEDS ORDERED: MIRALAX17 GM PO (12:52)
[2024-12-29] MEDS ORDERED: FURO20 PO (12:52)
[2024-12-29] MEDS ORDERED: MOBIC15 MG PO (12:53)
--- NOTE | 2024-12-29 15:42 | NUR ---
DISCHARGE PATIENT REVIEWED DISCHARGE PLAN WITH MEDICAL STAFF, PATIENT UNDERSTOOD SHE WAS GOING TO A REHAB CENTER. SHE WAS TRANSFERED BY WHEELCHAIR WITH EMS TO [facility]. PATIENT DENIED QUESTIONS OR CONCERNS UPON LEAVING.
[2024-12-31 07:22] LABS: AMITRIPTYLINE, QUANT, URN <100 ng/mL; CLOMIPRAMINE QUANT, URN <200 ng/mL; DESIPRAMINE QUANT, URN <100 ng/mL; DOXEPIN QUANT, URN <100 ng/mL; IMIPRAMINE QUANT, URN <100 ng/mL; NORCLOMIPRAMINE QUANT, URN <200 ng/mL; NORDOXEPIN QUANT, URN <100 ng/mL; NORTRIPTYLINE, QUANT, URN <100 ng/mL; PROTRIPTYLINE QUANT, URN <100 ng/mL
== END 2024-12-29 15:21 | DRG 690 ==
LOC: ER 10:38 → MEDS 16:10 → ENPENDDIS 12-29 11:53 → MEDS 12-29 15:21
PROVIDERS: Emergency Medicine; ADMIT Internal Medicine
DX: N39.0 Urinary tract infection, site not specified (principal); F11.20 Opioid dependence, uncomplicated; S22.41XA Multiple fractures of ribs, right side, initial encounter for closed fracture; S22.20XA Unspecified fracture of sternum, initial encounter for closed fracture; R53.1 Weakness; Z66 Do not resuscitate; I10 Essential (primary) hypertension; E11.65 Type 2 diabetes mellitus with hyperglycemia; F32.A Depression, unspecified; K21.9 Gastro-esophageal reflux disease without esophagitis; E87.6 Hypokalemia; K59.00 Constipation, unspecified; E11.40 Type 2 diabetes mellitus with diabetic neuropathy, unspecified; T48.205A Adverse effect of unspecified drugs acting on muscles, initial encounter; T43.595A Adverse effect of other antipsychotics and neuroleptics, initial encounter; T46.6X5A Adverse effect of antihyperlipidemic and antiarteriosclerotic drugs, initial encounter; Z86.711 Personal history of pulmonary embolism; Z88.1 Allergy status to other antibiotic agents; Z91.018 Allergy to other foods; Z91.048 Other nonmedicinal substance allergy status; Z79.01 Long term (current) use of anticoagulants; Z79.899 Other long term (current) drug therapy; Z79.84 Long term (current) use of oral hypoglycemic drugs; Z86.79 Personal history of other diseases of the circulatory system; Z98.890 Other specified postprocedural states; Z90.49 Acquired absence of other specified parts of digestive tract; Z90.710 Acquired absence of both cervix and uterus; X58.XXXA Exposure to other specified factors, initial encounter
CPT/HCPCS: 36415; 51701; 70450; 71250; 72125; 73030; 80048; 81001; 82550; 82607; 82947; 83735; 84439; 84443; 84481; 84484; 85025; 93005; 93010; 94762; 96374; 96376; 97110; 97112; 97161; 97530; 99285-25; A9270; G0480; G0481; J0696; J1815; J1885; J3010; J7030

== ENCOUNTER → 2025-01-21 | Outpatient (CLI) | payer OTHER ==
[~2025-01-21] MED LIST changes: +ACET500 PO; +DOCUZEN 8.6-501 EACH PO; +ELIQUIS5 M2 PO; +FAMO20 PO; +FISH OIL 1,0001 EA10 PO; +FLONASE ALLERG9.9 M2; +LIDO700A20 TOP; +MIRALAX17 GM PO; +MOBIC15 MG PO; +MOBISYL TOP; +PANT20 PO
[2025-01-21 18:07] LABS: Anion Gap 8 mmol/L (3-11); Blood Urea Nitrogen 9 mg/dL (8-24); CHOL/HDL RATIO 3.3; CO2, Blood 26 mmol/L (21-32); Calcium, Blood 9.7 mg/dL (8.5-10.1); Chloride, Blood 109 mmol/L (98-108); Cholesterol 124 mg/dL (50-200); Creatinine, Blood 0.59 mg/dL (0.40-1.00); Glucose, Blood 106 mg/dL (70-99); HDL Cholesterol 38 mg/dL (>39); LDL/HDL RATIO 1.3; Low Density Lipoprotein Chol 50 mg/dL (0-110); Potassium, Blood 3.5 mmol/L (3.5-5.5); Sodium, Blood 139 mmol/L (136-145); Thyroid Stimulating Hormone 0.970 uIU/mL (0.360-4.800); Triglycerides 180 mg/dL (30-160); Uric Acid, Blood 4.2 mg/dL (2.6-6.0); Very Low Density Lipoprot Chol 36 mg/dL (6-32)
[2025-01-24 08:46] LABS: THYROID PEROXIDASE (TPO) AB 8.6 IU/mL (0.0-9.0)
== END ==
LOC: LAB SHORT 16:04 → LAB 16:04
PROVIDERS: Family Medicine
DX: E03.8 Other specified hypothyroidism (principal); E11.69 Type 2 diabetes mellitus with other specified complication; M10.9 Gout, unspecified; R60.9 Edema, unspecified
CPT/HCPCS: 80048; 80061; 83036; 84439; 84443; 84550; 86376

== ENCOUNTER 2025-02-06 16:04 | Emergency (ER) | payer OTHER ==
[~2025-02-06] VITALS: Ht 165.1 cm; Wt 94.8 kg
[2025-02-06] MEDS ORDERED: Ketorolac Tromethamine 15mg Vial IV ONE (16:15)
[2025-02-06 16:32] LABS: BASOPHILS ABSOLUTE AUTO 0.08 K/mm3 (0.00-0.23); BASOPHILS PERCENT AUTO 1 % (0-2); EOSINOPHILS ABSOLUTE AUTO 0.04 K/mm3 (0.00-0.68); EOSINOPHILS PERCENT AUTO 0 % (0-6); Hematocrit 38.6 % (33.0-51.0); Hemoglobin 12.5 g/dL (11.5-16.0); IMMATURE GRAN ABSOLUTE AUTO 0.06 K/mm3 (0.00-0.10); IMMATURE GRAN PERCENT AUTO 0 % (0-1); LYMPHOCYTES ABSOLUTE AUTO 3.84 K/mm3 (0.84-5.20); LYMPHOCYTES PERCENT AUTO 27 % (21-46); MONOCYTES ABSOLUTE AUTO 0.76 K/mm3 (0.16-1.47); MONOCYTES PERCENT AUTO 5 % (4-13); Mean Corpuscular HGB Conc 32.4 g/dL (31.5-36.5); Mean Corpuscular Volume 89 fL (80-100); NEUTROPHILS ABSOLUTE AUTO 9.41 K/mm3 (1.96-9.15); NEUTROPHILS PERCENT AUTO 66 % (41-73); NRBC ABSOLUTE 0.00 K/mm3 (0.00-0.02); NRBC Auto 0.0 /100 WBC (0.0-0.2); Platelet Count 332 K/mm3 (150-400); RDW Coefficient Variation 15.3 % (11.7-14.2); RDW Standard Deviation 49.7 fL (35.1-46.3)
[2025-02-06 16:52] LABS: Alanine Aminotransfer (ALT/SGP 16.0 U/L (12-78); Albumin, Blood 3.9 g/dL (3.4-5.0); Albumin/Globulin Ratio 0.9 (0.8-1.8); Anion Gap 10.0 mmol/L (3-11); Aspartate Aminotrans (AST/SGOT 16.0 U/L (12-37); Bilirubin, Total 0.6 mg/dL (0.1-1.0); Blood Urea Nitrogen 13.0 mg/dL (8-24); CO2, Blood 22.0 mmol/L (21-32); Calcium, Blood 9.8 mg/dL (8.5-10.1); Chloride, Blood 109.0 mmol/L (98-108); Creatinine, Blood 0.52 mg/dL (0.40-1.00); Globulin, Blood 4.3 g/dL (2.2-4.0); Glucose, Blood 127.0 mg/dL (70-99); Potassium, Blood 3.7 mmol/L (3.5-5.5); Sodium, Blood 137.0 mmol/L (136-145); Total Protein, Blood 8.2 g/dL (6.4-8.2)
[2025-02-06] MEDS ORDERED: Milk 150ML/Molasses 150ML (300ML Total) PR ONE (18:10)
[2025-02-06] MEDS ORDERED: MIRALAX1714 PO (19:36)
[2025-02-06 20:14] VITALS: BP 126/62
== END 2025-02-06 21:01 | disposition home or self-care (01) ==
LOC: ER 16:04
PROVIDERS: Student in an Organized Health Care Education/Training Program
DX: K56.41 Fecal impaction (principal); E11.9 Type 2 diabetes mellitus without complications; Z79.899 Other long term (current) drug therapy; Z79.51 Long term (current) use of inhaled steroids; Z88.1 Allergy status to other antibiotic agents; Z91.048 Other nonmedicinal substance allergy status; Z91.018 Allergy to other foods
CPT/HCPCS: 71046; 74177; 80053; 83690; 84484; 85025; 93005; 93010; 96374-59; 99284-25; J1885; Q9967